=== PATIENT | female | born 1960 | race Caucasian/White ===

== ENCOUNTER 2020-08-07 16:15 | Emergency (ER) | payer MEDICARE, MEDICAID, SELFPAY ==
[2020-08-07 16:26] VITALS: BP 133/77; PULSE 70; RESP 18; TEMP 36.2; O2SAT 98; BMI 31.1
--- NOTE | 2020-08-07 17:07 | ED_ITS ---
HPI - Extremity Injury (Lower) General Chief Complaint: Extremity Injury, Lower Stated Complaint: SWOLLEN ANKLE Time Seen by Provider: 08/07/20 17:07 Source: patient Mode of arrival: ambulatory History of Present Illness HPI Narrative: 60-year-old female with a past medical history of anxiety, depression, glaucoma, hypertension presenting to ED complaining of left ankle pain/erythema x4 days. Denies known injury/trauma, twisting, numbness/tingling, fever/chills complaint: ankle injury Related Data Previous Rx's Medication Instructions Recorded cephalexin [Keflex] 500 mg PO Q6H 7 Days #28 cap 08/07/20 Allergies Allergy/AdvReac Type Severity Reaction Status Date / Time Penicillins AdvReac Rash Verified 08/07/20 16:25 Review of Systems Review of Systems: Constitutional: No Weight loss, No Fever, No Chills Respiratory: No Cough, No Sputum Musculoskeletal: + joint pain, No Myalgias, + Joint Swelling Skin: +erythema Neuro: No Weakness, No Numbness, No Paresthesias Yes all other systems are reviewed and are negative [facility] Past Medical History Attestation statement: The following information was validated with the patient. Medical History (Updated 08/07/20 @ 17:08 by ALISSA Grant) Anxiety Depression Glaucoma HTN (hypertension) Social History Social History Advance Directives: No Advance Directives Information Provided: Yes Physical Exam Vital Signs: Vital Signs: Vital Signs Temp Pulse Resp BP Pulse Ox 08/07/20 16:26 97.2 F 70 18 133/77 98 Body Mass Index 31.1 Const: General: cooperative and healthy appearing Orientation/consciousness: patient oriented x3 Limitations: no limitations HENMT: Head: Yes normal to inspection Ears: hearing grossly normal bilaterally General nose exam: Normal external nose present Face and sinus: Yes normal facial exam Eyes: General: appearance normal, both eyes and all related structures Resp: Effort & Inspection: normal respiratory effort Cardio: Rate: regular rate Peripheral pulses: Peripheral pulses 2+ throughout Skin: Other: +erythema and warmth noted to lateral L ankle. No fluctuance/induration. No streaking Rashes: no rashes Wounds: no wounds Neuro: General: patient oriented x3 Gait exam (Neuro): Normal gait present Extrem: Other: L ankle without ttp, FROM/NV intact General: Yes normal to inspection Left upper extremity: full ROM and normal capillary refill MDM - Extremity Injury (Lower) MDM Narrative Medical decision making narrative: On exam VSS, NAD, well appearing. likely early cellulitis versus early abscess Low concern for septic joint /arthritis Discharge Plan Discharge Clinical Impression: Cellulitis Qualifiers: Site of cellulitis: unspecified site Qualified Code(s): L03.90 - Cellulitis, unspecified Patient Disposition: Home, Self-Care Instructions: Cellulitis (ED) Additional Instructions: you have an early cellulitis or abscess to your ankle, Keflex as antibiotic, take as prescribed Keep an eye on the area, if it is growing, redness is spreading, you fevers, or area comes to a head return to the ED immediately Follow up with her doctor Prescriptions: New cephalexin [Keflex] 500 mg capsule 500 mg PO Q6H 7 Days Qty: 28 RF: 0 Referrals: Physician,Unknown [Primary Care Provider] - 5 days
--- NOTE | 2020-08-07 17:24 | PC.NURSE ---
WAITING FOR FARM FACILITY MANAGER.
== END 2020-08-07 17:29 | disposition home or self-care (01) ==
PROVIDERS: Emergency Provider Internal Medicine
DX: L03.116 Cellulitis of left lower limb (principal); M25.572 Pain in left ankle and joints of left foot; I10 Essential (primary) hypertension
CPT/HCPCS: 99283